=== PATIENT | female | born 1940 | race Caucasian/White ===

== ENCOUNTER 2024-12-30 16:45 | Inpatient (IN) | payer MEDICARE, OTHER ==
[2024-12-30] VITALS (11 sets, daily range): BP systolic 110–174; BP diastolic 54–105; PULSE 90–114; RESP 18–31; TEMP 98.2–98.8; O2SAT 95–100
[~2024-12-30] VITALS: Ht 160 cm; Wt 78.1 kg
[2024-12-30] MEDS: ALBUTEROL SULFATE 2.5 MG/0.5 ML NEB SOLUTION NEB ONE (16:59)
[2024-12-30] MEDS: IPRATROPIUM BROMIDE 0.5 MG/2.5 ML NEB SOLUTION NEB ONE (16:59)
[2024-12-30 17:23] LABS: PLATELET COUNT (AUTO) 316 K/uL (150-450); RED BLOOD CELL COUNT(AUTO) 2.78 MIL/uL (4.00-5.20); RED CELL DISTRIBUTION WIDTH 17.4 % (11.5-14.5); WHITE BLOOD COUNT (AUTO) 9.6 K/uL (4.5-11.0)
[2024-12-30 17:24] LABS: COVID AG,FIA SOURCE NASAL SWAB
[2024-12-30 17:31] LABS: CALCIUM, TOTAL 8.8 mg/dL (8.8-10.5); CREATININE 1.16 mg/dL (0.60-1.30); GLOMERULAR FILTR. RATE CALC 45 mL/min (>60); GLUCOSE,RANDOM 229 mg/dL (70-110); SODIUM SERUM 135 mmol/L (136-145); UREA NITROGEN, BLOOD 25 mg/dL (7-18)
[2024-12-30 17:35] LABS: ASPARTATE AMINOTRANSFERASE 20.0 U/L (15-37); CREATINE KINASE, TOTAL ONLY 28.0 U/L (26-192); TOTAL PROTEIN, SERUM 7.0 g/dL (6.4-8.2)
[2024-12-30 17:42] LABS: TROPONIN I-HIGH SENSITIVITY 72 ng/L (<51)
[2024-12-30 17:55] LABS: SARS-COV2 (COVID) ANTIGEN,FIA Negative (Negative)
[2024-12-30 18:12] LABS: RBC MORPHOLOGY COMMENT ABNORMAL RBC MORPH
[2024-12-30] MEDS ORDERED: DEXTROSE 50%-WATER 25 GM/50 ML SYRINGE IVP PRN (18:30)
[2024-12-30 18:41] LABS: INFLUENZA TYPE A NEGATIVE FOR TYPE A (NEGATIVE); INFLUENZA TYPE B NEGATIVE FOR TYPE B (NEGATIVE)
[2024-12-30] MEDS ORDERED: ONDANSETRON HCL 4 MG/2 ML VIAL IVP PRN (18:45)
[2024-12-30 18:59] LABS: ABG BASE EXCESS 0.9 mmol/L (-2.0-3.0); ABG CARBOXYHEMOGLOBIN 0.6 % (0.5-1.5); ABG HCO3 25.3 mmol/L (21.0-28.0); ABG METHEMOGLOBIN 1.6 % (0.0-1.5); ABG OXYGEN CONTENT 9.9 mL/dL (15.0-23.0); ABG OXYGEN SATURATION 99.6 % (94.0-98.0); ABG OXYHEMOGLOBIN 97.4 % (94.0-98.0); ABG PCO2 37 mmHg (32.0-45.0); ABG PH 7.451 (7.350-7.450); FRACTIONATED INSPIRED OXYGEN 50.0 % (21-100.0); PO2, ARTERIAL BG 144.8 mmHg (83.0-108.0); SOURCE, BLOOD GAS ARTERIAL; TEMPERATURE, FAHRENHEIT, BG 98.6 FAHREN (96.0-98.6)
[2024-12-30 19:01] LABS: ABG TOTAL HEMOGLOBIN 7.0 G/dL (12.0-16.0); ALLEN TEST, BLOOD GAS po; SITE, BLOOD GAS RT RADIAL
[2024-12-30 19:02] LABS: ABG A-A DIFF O2 170.6 mmHg (10-20.0); CPAP, BG 4 cm H2O; O2 DEVICE,BLOOD GAS BIPAP (ROOM AIR); SET RATE, BG 18.0 min.
[2024-12-30] MEDS: FUROSEMIDE 20 MG/2 ML VIAL IVP ONE (19:02)
[2024-12-30 19:33] LABS: TROPONIN I-HIGH SENSITIVITY 78 ng/L (<51)
[2024-12-30] MEDS: ACETAMINOPHEN 325 MG TABLET PO PRN (20:39)
[2024-12-30] MEDS: DOCUSATE SODIUM 100 MG CAPSULE PO SCH (21:00)
[2024-12-30] MEDS: PANTOPRAZOLE SODIUM 40 MG/VIAL IVP SCH (21:15)
[2024-12-30] MEDS: CHLORHEXIDINE GLUCONATE 2% TOWELETTE [2'S/6'S] TP SCH (22:41)
[2024-12-30] MEDS: ETHYL ALCOHOL 62% ANTISEPTIC NASAL SANITIZER 0.6 ML AMPUL NASAL SCH (22:41)
[2024-12-30 23:26] LABS: GLUCOMETER DEV NAME(LOC) ICUN.6; GLUCOSE,POINT OF CARE 161 MG/DL (70-110)
[2024-12-31] VITALS (16 sets, daily range): BP systolic 104–130; BP diastolic 51–79; PULSE 79–105; RESP 14–23; TEMP 96–98.4; O2SAT 96–99
[2024-12-31] MEDS: INSULIN LISPRO 100 UNITS/ML SQ PRN (05:39)
[2024-12-31 06:00] LABS: GLUCOMETER DEV NAME(LOC) ICU.S7; GLUCOSE,POINT OF CARE 148 MG/DL (70-110)
[2024-12-31 06:02] LABS: RED BLOOD CELL COUNT(AUTO) 2.79 MIL/uL (4.00-5.20); RED CELL DISTRIBUTION WIDTH 16.6 % (11.5-14.5); WHITE BLOOD COUNT (AUTO) 6.2 K/uL (4.5-11.0)
[2024-12-31 07:11] LABS: PLATELET COUNT (AUTO) 280 K/uL (150-450)
[2024-12-31 07:12] LABS: RBC MORPHOLOGY COMMENT ABNORMAL RBC MORPH
[2024-12-31 12:31] LABS: GLUCOMETER DEV NAME(LOC) ICUN.6; GLUCOSE,POINT OF CARE 128 MG/DL (70-110)
[2024-12-31 13:01] LABS: PLATELET COUNT (AUTO) 241 K/uL (150-450); RED BLOOD CELL COUNT(AUTO) 2.76 MIL/uL (4.00-5.20); RED CELL DISTRIBUTION WIDTH 16.9 % (11.5-14.5); WHITE BLOOD COUNT (AUTO) 6.1 K/uL (4.5-11.0)
[2024-12-31 13:12] LABS: RBC MORPHOLOGY COMMENT ABNORMAL RBC MORPH
[2024-12-31] MEDS ORDERED: SODIUM CHLORIDE 0.9% 250 ML IV ONE (14:23)
[2024-12-31] MEDS: PANTOPRAZOLE SODIUM 80 MG in SODIUM CHLORIDE 0.9% 100 ML IV SCH (14:34)
[2024-12-31] MEDS: AZITHROMYCIN 500 MG/NS 250 ML IV SCH (14:36)
[2024-12-31 18:00] LABS: GLUCOMETER DEV NAME(LOC) ICU.S7; GLUCOSE,POINT OF CARE 147 MG/DL (70-110)
[2024-12-31 20:40] LABS: GLUCOMETER DEV NAME(LOC) ICUN.6; GLUCOSE,POINT OF CARE 142 MG/DL (70-110)
[2025-01-01] VITALS (13 sets, daily range): BP systolic 98–158; BP diastolic 58–86; PULSE 82–118; RESP 14–26; TEMP 97.5–98.1; O2SAT 95–100
[2025-01-01] MEDS ORDERED: 0.9% SODIUM CHLORIDE 5 ML NEB SOLUTION NEB ONE (00:56)
[2025-01-01] MEDS: ALBUTEROL SULFATE 2.5 MG/0.5 ML NEB SOLUTION NEB PRN (00:59)
[2025-01-01 05:40] LABS: GLUCOMETER DEV NAME(LOC) ICU.S7; GLUCOSE,POINT OF CARE 146 MG/DL (70-110)
[2025-01-01 06:27] LABS: PLATELET COUNT (AUTO) 239 K/uL (150-450); RED BLOOD CELL COUNT(AUTO) 3.44 MIL/uL (4.00-5.20); RED CELL DISTRIBUTION WIDTH 16.6 % (11.5-14.5); WHITE BLOOD COUNT (AUTO) 10.4 K/uL (4.5-11.0)
[2025-01-01 06:39] LABS: CALCIUM, TOTAL 7.8 mg/dL (8.8-10.5); CREATININE 1.1 mg/dL (0.60-1.30); GLOMERULAR FILTR. RATE CALC 47.0 mL/min (>60); GLUCOSE,RANDOM 130.0 mg/dL (70-110); SODIUM SERUM 138.0 mmol/L (136-145); UREA NITROGEN, BLOOD 30.0 mg/dL (7-18)
[2025-01-01] MEDS ORDERED: SODIUM CHLORIDE 0.9% 500 ML IV ONE (08:44)
[2025-01-01 12:45] LABS: GLUCOMETER DEV NAME(LOC) ICU.S7; GLUCOSE,POINT OF CARE 136 MG/DL (70-110)
[2025-01-01 17:36] LABS: GLUCOMETER DEV NAME(LOC) ICUN.6; GLUCOSE,POINT OF CARE 166 MG/DL (70-110)
[2025-01-01] MEDS: DEXMEDETOMIDINE 400 MCG/NS 100 ML IV PRN (18:15)
[2025-01-02] VITALS (21 sets, daily range): BP systolic 93–109; BP diastolic 47–73; PULSE 75–103; RESP 12–26; TEMP 97–98.9; O2SAT 95–100
[2025-01-02 01:51] LABS: GLUCOMETER DEV NAME(LOC) ICUN.6; GLUCOSE,POINT OF CARE 128 MG/DL (70-110)
[2025-01-02] MEDS ORDERED: 0.9% SODIUM CHLORIDE 5 ML NEB SOLUTION NEB ONE ×5 (02:47→21:18)
[2025-01-02 06:26] LABS: PLATELET COUNT (AUTO) 186 K/uL (150-450); RED BLOOD CELL COUNT(AUTO) 3.37 MIL/uL (4.00-5.20); RED CELL DISTRIBUTION WIDTH 17.5 % (11.5-14.5); WHITE BLOOD COUNT (AUTO) 10.3 K/uL (4.5-11.0)
[2025-01-02 06:57] LABS: CALCIUM, TOTAL 7.9 mg/dL (8.8-10.5); CREATININE 1.09 mg/dL (0.60-1.30); GLOMERULAR FILTR. RATE CALC 48.0 mL/min (>60); GLUCOSE,RANDOM 130.0 mg/dL (70-110); SODIUM SERUM 136.0 mmol/L (136-145); UREA NITROGEN, BLOOD 36.0 mg/dL (7-18)
[2025-01-02] MEDS: PANTOPRAZOLE SODIUM 40 MG/VIAL IVP SCH (09:00)
[2025-01-02] MEDS: SODIUM ZIRCONIUM CYCLOSILICATE 10 GM POWDER PACKET PO ONE (09:01)
[2025-01-02] MEDS: SODIUM CHLORIDE 0.9% 1,000 ML IV ONE ×2 (09:16→14:14)
[2025-01-02 17:56] LABS: GLUCOMETER DEV NAME(LOC) ICU.S7; GLUCOSE,POINT OF CARE 140 MG/DL (70-110)
[2025-01-02 20:41] LABS: GLUCOMETER DEV NAME(LOC) ICUN.6; GLUCOSE,POINT OF CARE 152 MG/DL (70-110)
[2025-01-02] MEDS: LORazepam 2 MG/ML VIAL IVP PRN (21:05)
[2025-01-03] VITALS (12 sets, daily range): BP systolic 110–143; BP diastolic 46–78; PULSE 82–116; RESP 16–23; TEMP 97.6–98.1; O2SAT 90–98
[2025-01-03 06:05] LABS: GLUCOMETER DEV NAME(LOC) ICU.S7; GLUCOSE,POINT OF CARE 152 MG/DL (70-110)
[2025-01-03 07:11] LABS: PLATELET COUNT (AUTO) 174 K/uL (150-450); RED BLOOD CELL COUNT(AUTO) 3.25 MIL/uL (4.00-5.20); RED CELL DISTRIBUTION WIDTH 17.2 % (11.5-14.5); WHITE BLOOD COUNT (AUTO) 5.8 K/uL (4.5-11.0)
[2025-01-03 07:31] LABS: CREATININE 0.94 mg/dL (0.60-1.30); GLOMERULAR FILTR. RATE CALC 57.0 mL/min (>60); GLUCOSE,RANDOM 140.0 mg/dL (70-110); SODIUM SERUM 140.0 mmol/L (136-145); UREA NITROGEN, BLOOD 28.0 mg/dL (7-18)
[2025-01-03 07:50] LABS: CALCIUM, TOTAL 7.7 mg/dL (8.8-10.5)
[2025-01-03] MEDS: FUROSEMIDE 20 MG/2 ML VIAL IVP ONE (17:51)
[2025-01-04] VITALS (7 sets, daily range): BP systolic 124–150; BP diastolic 69–83; PULSE 63–109; RESP 17–21; TEMP 97.5–97.9; O2SAT 97–99
[2025-01-04 00:46] LABS: GLUCOMETER DEV NAME(LOC) ICU.S7; GLUCOSE,POINT OF CARE 138 MG/DL (70-110)
[2025-01-04 06:26] LABS: GLUCOMETER DEV NAME(LOC) ICU.S7; GLUCOSE,POINT OF CARE 132 MG/DL (70-110)
[2025-01-04 10:20] LABS: PLATELET COUNT (AUTO) 169 K/uL (150-450); RED BLOOD CELL COUNT(AUTO) 3.49 MIL/uL (4.00-5.20); RED CELL DISTRIBUTION WIDTH 17.3 % (11.5-14.5); WHITE BLOOD COUNT (AUTO) 4.7 K/uL (4.5-11.0)
[2025-01-04 10:33] LABS: CALCIUM, TOTAL 7.7 mg/dL (8.8-10.5); CREATININE 0.82 mg/dL (0.60-1.30); GLOMERULAR FILTR. RATE CALC > 60 mL/min (>60); GLUCOSE,RANDOM 167 mg/dL (70-110); SODIUM SERUM 139 mmol/L (136-145); UREA NITROGEN, BLOOD 32 mg/dL (7-18)
[2025-01-04 12:00] LABS: GLUCOMETER DEV NAME(LOC) ICUN.6; GLUCOSE,POINT OF CARE 141 MG/DL (70-110)
== END 2025-01-04 14:28 | DRG 291 ==
LOC: EMS 16:45 → UNDOADMIN 18:31 → EDH 18:31 → ICU 18:33 → EDH 22:09 → ICU 22:09
PROVIDERS: ADMIT Internal Medicine; ATTEND Internal Medicine
PROC: 30233N1 Transfusion of Nonautologous Red Blood Cells into Peripheral Vein, Percutaneous Approach (ICD-10-PCS; principal; 2024-12-30)
PROC: 5A09357 Assistance with Respiratory Ventilation, Less than 24 Consecutive Hours, Continuous Positive Airway Pressure (ICD-10-PCS; 2024-12-30)
PROC: 5A09457 Assistance with Respiratory Ventilation, 24-96 Consecutive Hours, Continuous Positive Airway Pressure (ICD-10-PCS; 2024-12-31)
PROC: 5A09457 Assistance with Respiratory Ventilation, 24-96 Consecutive Hours, Continuous Positive Airway Pressure (ICD-10-PCS; 2025-01-02)
PROC: 05HC33Z Insertion of Infusion Device into Left Basilic Vein, Percutaneous Approach (ICD-10-PCS; 2025-01-03)
PROC: B54NZZA Ultrasonography of Left Upper Extremity Veins, Guidance (ICD-10-PCS; 2025-01-03)
DX: I11.0 Hypertensive heart disease with heart failure (principal); I50.33 Acute on chronic diastolic (congestive) heart failure; J96.01 Acute respiratory failure with hypoxia; J44.1 Chronic obstructive pulmonary disease with (acute) exacerbation; T82.857A Stenosis of other cardiac prosthetic devices, implants and grafts, initial encounter; C34.90 Malignant neoplasm of unspecified part of unspecified bronchus or lung; I69.354 Hemiplegia and hemiparesis following cerebral infarction affecting left non-dominant side; D64.9 Anemia, unspecified; I08.1 Rheumatic disorders of both mitral and tricuspid valves; I25.10 Atherosclerotic heart disease of native coronary artery without angina pectoris; E11.9 Type 2 diabetes mellitus without complications; I48.91 Unspecified atrial fibrillation; Z66 Do not resuscitate; M27.0 Developmental disorders of jaws; Y83.1 Surgical operation with implant of artificial internal device as the cause of abnormal reaction of the patient, or of later complication, without mention of misadventure at the time of the procedure; Z20.822 Contact with and (suspected) exposure to COVID-19; Z88.0 Allergy status to penicillin; Z88.8 Allergy status to other drugs, medicaments and biological substances; Z79.4 Long term (current) use of insulin; Z85.048 Personal history of other malignant neoplasm of rectum, rectosigmoid junction, and anus; Z93.3 Colostomy status
CPT/HCPCS: 36569; 36600; 71045; 71250; 76937; 80048; 80076; 82271; 82550; 82805; 82962; 83735; 83880; 84100; 84132; 84484; 85014; 85018; 85025; 85610; 85730; 86850; 86900; 86901; 86923; 87081; 87804; 92610; 93005; 93306; 93970; 94640; 94660; 96374; 99291; J0456; J1938; J2060; J2405; J2470; J2919; J7040; J7050; P9016; 36415-L1; 36415-TC; J7613